=== PATIENT | male | born 1965 | race Caucasian/White ===

== ENCOUNTER 2020-12-30 14:05 | Emergency (ER) | payer SELFPAY ==
[~2020-12-30] VITALS: Ht 185.4 cm; Wt 72.0 kg
[2020-12-30] MEDS ORDERED: KETOROLAC 30MG/ML VIAL IV STA (15:41)
[2020-12-30] MEDS ORDERED: SODIUM CHLORIDE 0.9% 1,000 ML IV ONE (15:45)
[2020-12-30 16:00] LABS: HEMATOCRIT. 45.7 % (42.0-52.0); HEMOGLOBIN. 15.4 g/dL (14.0-18.0); MEAN CORPUSCULAR HEMOGLOBIN 30.1 pg (28.0-32.0); MEAN CORPUSCULAR VOLUME 88.9 fL (80.0-94.0); MEAN PLATELET VOLUME 9.3 fl (7.4-10.4); PLATELET 165 x1000/uL (130-400); RED BLOOD CELL COUNT 5.13 mill/uL (4.7-6.1); RED CELL DISTRIBUTION WIDTH 13.3 % (11.6-14.6)
[2020-12-30 16:07] LABS: CHLORIDE 108 mEq/L (98-107)
[2020-12-30 16:52] LABS: PLATELET ESTIMATE NORMAL
[2020-12-30 17:21] VITALS: BP 141/76
[2020-12-30 17:25] LABS: CLARITY URINE CLEAR (CLEAR); COLOR URINE YELLOW (YELLOW); KETONES URINE TRACE (NEGATIVE); LEUKOCYTE ESTERASE URINE NEGATIVE (NEGATIVE); NITRITE URINE NEGATIVE (NEGATIVE); OCCULT BLOOD URINE 2+ (NEGATIVE); PH URINE 8.5 (4.5-8.0); PROTEIN URINE NEGATIVE (NEGATIVE); SPECIFIC GRAVITY URINE 1.016 (1.005-1.030)
[2020-12-30] MEDS ORDERED: HYDR-4001 MT (18:11)
[2020-12-30] MEDS ORDERED: TAMS-11 MT (18:11)
[2020-12-30] MEDS ORDERED: IBUP-2028 MT (18:11)
== END 2020-12-30 18:29 | disposition home or self-care (01) ==
LOC: ER 14:05
DX: N13.2 Hydronephrosis with renal and ureteral calculous obstruction (principal); F17.210 Nicotine dependence, cigarettes, uncomplicated; Z71.6 Tobacco abuse counseling
CPT/HCPCS: 36415; 74176; 80053; 81003; 83690; 85025; 93005; 96361; 96374; 99285; 99406; J1885; J7030